=== PATIENT | male | born 1955 | race Asian ===

== ENCOUNTER 2023-07-24 04:17 | Day surgery (SDC) | payer OTHER, BC ==
[2023-07-19 13:26] VITALS: BMI 24.3
[2023-07-24] MEDS ORDERED: MIDAZOLAM HCL 2 MG/2 ML SINGLE DOSE VIAL ONE (07:58)
[2023-07-24] MEDS ORDERED: PROPOFOL 20 ML ONE (08:17)
[2023-07-24 08:35] VITALS: RESP 16; TEMP 98.5
[2023-07-24 09:55] VITALS: BP 134/79; PULSE 77
== END 2023-07-24 10:54 | disposition home or self-care (01) ==
LOC: JASU-SURG 04:17
PROVIDERS: ATTEND Urology
PROC: 0TF4XZZ Fragmentation in Left Kidney Pelvis, External Approach (ICD-10-PCS; principal; 2023-07-24 08:00)
DX: N20.0 Calculus of kidney (principal)
CPT/HCPCS: 82962